=== PATIENT | female | born 1980 | race Caucasian/White ===

== ENCOUNTER 2017-10-24 17:18 | Emergency (ER) | payer OTHER, SELFPAY ==
[2017-10-24 18:08] LABS: Bilirubin Negative (Negative); Blood, Urine Trace (Negative); Clarity Clear (Clear); Glucose, Urine (Dipstick) Negative (Negative); Leukocyte Negative (Negative); Nitrite Negative (Negative); Protein, Urine (Dipstick) Negative (Neg-Trace); Urobilinogen 0.2 mg/dL (0.2-1.0)
[2017-10-24 18:09] LABS: Specific Gravity, Urine 1.023 (1.002-1.036)
[2017-10-24 18:09] LABS: #Basophils 0.1 thou/uL (0.0-0.2); #Eosinphils 0.1 thou/uL (0.0-0.7); #Lymphocytes 2.7 thou/uL (1.20-3.40); #Monocytes 0.5 thou/uL (0.11-0.59); #Neutrophils 6.1 thou/uL (1.40-6.50); %Basophils 1.1 % (0.0-1.0); %Eosinophils 1.6 % (0.0-10.0); %Lymphocytes 28.4 % (21.0-51.0); %Monocytes 5.1 % (0.0-10.0); Hemoglobin 13.3 g/dL (12.0-16.0); Mean Corpuscular HGB CONC 33.8 g/dL (32.0-36.0); Mean Corpuscular Hemoglobin 30.4 pg (27.0-31.0); Mean Corpuscular Volume 89.8 fl (81.0-99.0); Mean Platelet Volume 7.9 fL (7.4-10.4); Platelet Count 220 thou/uL (130-400); RBC Distribution Width 11.6 % (11.5-14.5); Red Blood Cell (RBC) Count 4.38 mill/uL (4.20-5.40); White Blood Cell (WBC) Count 9.6 thou/uL (4.8-10.8)
[2017-10-24 18:16] LABS: Bacteria/HPF 1+ HPF (None Seen); Squamous Epithelial 0-3 HPF (0-3)
--- NOTE | 2017-10-24 21:52 | ULT ---
PELVIC ULTRASOUND 10/24/17 COMPARISON: None. HISTORY: Cramping and vaginal bleeding. Positive test. TECHNIQUE: Multiplanar serrano scale and color doppler images were obtained in a transvaginal pelvic ultrasound. Sp ectral analysis of the doppler waveforms of the ovaries were performed. FINDINGS: The endometrium is thickened. There is a tiny hypoechoic region in the middle of the endometrial thic kening. This has a mean sac diameter of 0.25 cm which would estimated gestational age at 5 weeks, 0 d ays. No pole or yolk sac is seen at this time. A small amount of free fluid is seen in the pelvis. Both ovaries are normal in size and appearance an d demonstrate normal internal flow. IMPRESSION: Possible very early intrauterine . POS: MIKHAIL
== END 2017-10-24 21:25 | disposition home or self-care (01) ==
LOC: SCSER 17:18
DX: O20.0 Threatened abortion (principal); O99.411 Diseases of the circulatory system complicating pregnancy, first trimester; I48.91 Unspecified atrial fibrillation; Z3A.01 Less than 8 weeks gestation of pregnancy
CPT/HCPCS: 36415; 76856; 81003; 81015; 84702; 85025; 86900; 86901; 87086; 87480; 87491; 87510; 87591; 87660; 90384; 93976; 96372

== ENCOUNTER 2019-04-08 09:36 | Outpatient (CLI) | payer OTHER ==
--- NOTE | 2019-04-08 09:55 | RAD ---
Lumbar spine 3 views: 04/08/2019 COMPARISON: None HISTORY: Low back pain FINDINGS: No fracture or dislocation. 5 lumbar type vertebral bodies are present with intact pedicles on frontal imaging. Lateral exam demonstrates normal vertebral body height and alignment. IMPRESSION: No acute findings.
== END 2019-04-08 09:37 | disposition home or self-care (01) ==
LOC: RAD-FRANK 09:36
PROVIDERS: ATTEND Nurse Practitioner Family
DX: S39.012A Strain of muscle, fascia and tendon of lower back, initial encounter (principal)
CPT/HCPCS: 72100

== ENCOUNTER 2019-07-30 15:01 | Emergency (ER) | payer OTHER, SELFPAY ==
[2019-07-30 15:59] LABS: #Basophils 0.1 thou/uL (0.0-0.2); #Lymphocytes 2.8 thou/uL (1.20-3.40); #Monocytes 0.4 thou/uL (0.11-0.59); #Neutrophils 4.1 thou/uL (1.40-6.50); %Basophils 1.4 % (0.0-1.0); %Eosinophils 0.6 % (0.0-10.0); %Lymphocytes 37.2 % (21.0-51.0); %Monocytes 5.9 % (0.0-10.0); %Neutrophils 54.9 % (42.0-75.0); Hemoglobin 14.2 g/dL (12.0-16.0); Mean Corpuscular HGB CONC 32.2 g/dL (32.0-36.0); Mean Corpuscular Hemoglobin 29.7 pg (27.0-31.0); Mean Corpuscular Volume 92.2 fL (78.0-98.0); Mean Platelet Volume 9.5 fL (7.4-10.4); Platelet Count 234 thou/uL (130-400); RBC Distribution Width 12.9 % (11.5-14.5); Red Blood Cell (RBC) Count 4.78 mill/uL (4.20-5.40); White Blood Cell (WBC) Count 7.4 thou/uL (4.8-10.8)
[2019-07-30 16:06] LABS: ALT (SGPT) 19 U/L (8-55); AST (SGOT) 18 U/L (5-34); Albumin 4.4 g/dL (3.5-5.0); Alkaline Phosphatase 52 U/L (40-110); Anion Gap 13 mmol/L (10-20); BUN (Urea Nitrogen) 9 mg/dL (7.0-18.7); Bilirubin, Total 0.6 mg/dL (0.2-1.2); Calc. Creatinine Clearance 0 mL/min (70-130); Calcium 9.1 mg/dL (7.8-10.44); Carbon Dioxide 23 mmol/L (22-29); Chloride 106 mmol/L (98-107); Estimated GFR-MDRD 87; Globulin 3.2 g/dL (2.4-3.5); Glucose 91 mg/dL (70-105); Potassium 3.4 mmol/L (3.5-5.1); Protein, Total 7.6 g/dL (6.0-8.3); Sodium 139 mmol/L (136-145)
[2019-07-30 16:14] LABS: BHCG - Serum Negative (NEGATIVE); Pregs Control Background? CLEAR/WHITE (CLR/WHITE); Pregs Control Bar Appear? YES (CONTROL BAR)
--- NOTE | 2019-07-30 16:33 | CT ---
CT BRAIN NONCONTRAST: DATE: 07/30/2019 HISTORY: 38-year-old female with altered mental status, visual disturbance, and headache. FINDINGS: There is no evidence of acute intra-axial or extra-axial hemorrhage. There is no midline shift or any other mass effect. There is no extra-axial fluid collection. The ventricles are normal in size and configuration. The tympanomastoid cavities, and the upper portions of the paranasal sinuses included in these images, are grossly clear. Calvarium is intact. IMPRESSION: Normal.
--- NOTE | 2019-07-30 16:36 | RAD ---
XR Chest 1 View Portable HISTORY: Chest pain COMPARISON: 07/28/2017 study FINDINGS: Heart size and mediastinum are within normal limits. The lungs are clear of infiltrates. No significant bony findings. IMPRESSION: No active intrathoracic disease.
[2019-07-30 17:08] LABS: Bilirubin Negative (Negative); Blood, Urine Negative (Negative); Clarity Clear (Clear); Glucose, Urine (Dipstick) Negative (Negative); Leukocyte Negative (Negative); Nitrite Negative (Negative); Protein, Urine (Dipstick) Negative (Neg-Trace); Urobilinogen 0.2 mg/dL (Less than 2)
== END 2019-07-30 17:30 | disposition home or self-care (01) ==
LOC: SCSER 15:01
DX: R07.9 Chest pain, unspecified (principal); R20.2 Paresthesia of skin; F41.9 Anxiety disorder, unspecified; F32.9 Major depressive disorder, single episode, unspecified; G43.909 Migraine, unspecified, not intractable, without status migrainosus
CPT/HCPCS: 70450; 71045; 80053; 81003; 84443; 84484; 84703; 85025; 85379; 93005

== ENCOUNTER 2019-08-18 19:41 | Emergency (ER) | payer SELFPAY ==
[2019-08-18] MEDS ORDERED: Ondansetron PF 4 MG/2 ML Vial ONE (19:56)
[2019-08-18] MEDS ORDERED: Morphine 4 MG/ML VIAL ONE (19:56)
[2019-08-18 20:52] LABS: BHCG - Serum Negative (NEGATIVE); Pregs Control Background? CLEAR/WHITE (CLR/WHITE); Pregs Control Bar Appear? YES (CONTROL BAR)
[2019-08-18 21:01] LABS: Hemoglobin 13.6 g/dL (12.0-16.0); Mean Corpuscular HGB CONC 34.4 g/dL (32.0-36.0); Mean Corpuscular Hemoglobin 31.6 pg (27.0-31.0); Platelet Count 180 thou/uL (130-400); RBC Distribution Width 12.7 % (11.5-14.5); White Blood Cell (WBC) Count 12.7 thou/uL (4.8-10.8)
[2019-08-18 21:04] LABS: ALT (SGPT) 12 U/L (8-55); AST (SGOT) 11 U/L (5-34); Albumin 3.7 g/dL (3.5-5.0); Alkaline Phosphatase 47 U/L (40-110); Anion Gap 10 mmol/L (10-20); BUN (Urea Nitrogen) 8 mg/dL (7.0-18.7); Bilirubin, Total 0.9 mg/dL (0.2-1.2); Calc. Creatinine Clearance 0 mL/min (70-130); Calcium 7.8 mg/dL (7.8-10.44); Carbon Dioxide 20 mmol/L (22-29); Chloride 112 mmol/L (98-107); Estimated GFR-MDRD 90; Globulin 2.6 g/dL (2.4-3.5); Glucose 95 mg/dL (70-105); Lipase 19 U/L (8-78); Potassium 4.3 mmol/L (3.5-5.1); Protein, Total 6.3 g/dL (6.0-8.3); Sodium 138 mmol/L (136-145)
[2019-08-18 21:05] LABS: Band 18 % (5-11); Eosinophils 2 % (0-10); Lymphocytes 3 % (21-51); MDiff Complete? YES; Monocytes 4 % (0-10); Neutrophil 73 % (42-75)
--- NOTE | 2019-08-18 21:48 | CT ---
CT ABDOMEN AND PELVIS WITH IV CONTRAST: 08/18/19 HISTORY: Diffuse abdominal pain, right lower quadrant pain. FINDINGS: The lung bases are clear. There is fatty infiltration of the liver. No hepatic mass is seen. The liver, spleen, pancreas, adrenal glands and kidneys are normal. No calcified gallstones are noted . No free air, free fluid, or lymphadenopathy is seen in the abdomen or pelvis. The small bowel loops are not abnormally dilated. A normal appearing appendix is present. The uterus and ovaries are present. There is a 3.5 cm cystic mass in the right ovary. No acute osseous abnormali ties are noted. IMPRESSION: 1. 3.5 cm right ovarian cystic mass. 2. No evidence of appendicitis. POS: OFF
--- NOTE | 2019-08-18 22:51 | ULT ---
TRANSVAGINAL PELVIC ULTRASOUND WITH GALICIA SCALE, COLOR FLOW AND SPECTRAL DOPPLER IMAGIN08/18/19 HISTORY: Pelvic pain. More to the right lower quadrant with nausea, vomiting, and diarrhea. FINDINGS: The uterus measures 8.5 x 3.9 x 5.6 cm without focal mass or endometrial fluid. The endometrium measu res 9 mm in thickness. The right ovary measures 4.1 x 5.1 x 4.4 cm and the left ovary measures 3.2 x 2.3 x 3.1 cm. Flow is d emonstrated to both ovaries. No free fluid is seen in the cul-de-sac. There is a 3.2 x 3 x 2.4 cm cys t in the right ovary. IMPRESSION: 3.2 cm right ovarian cyst. POS: OFF
[2019-08-18] MEDS ORDERED: Ketorolac Tromethamine 30 MG/ML VIAL ONE (23:35)
[2019-08-18 23:52] LABS: Bilirubin Negative (Negative); Blood, Urine Negative (Negative); Clarity Clear (Clear); Glucose, Urine (Dipstick) Normal (Negative); Leukocyte Negative Leu/uL (Negative); Nitrite Negative (Negative); Protein, Urine (Dipstick) Negative (Neg-Trace); Urobilinogen Normal mg/dL (Less than 2)
== END 2019-08-19 00:11 | disposition home or self-care (01) ==
LOC: ERS 19:41
DX: N83.201 Unspecified ovarian cyst, right side (principal); F41.9 Anxiety disorder, unspecified; F32.9 Major depressive disorder, single episode, unspecified; Z85.3 Personal history of malignant neoplasm of breast; Z87.440 Personal history of urinary (tract) infections
CPT/HCPCS: 36415; 74177; 76856; 80053; 81003; 83605; 83690; 84703; 85025; 93976; 96361; 96374; 96375; J1885; J2270; J2405

== ENCOUNTER 2021-03-03 02:18 | Emergency (ER) | payer SELFPAY | END 2021-03-03 03:37 | disposition home or self-care (01) | LOC: ERS 02:18 | DX: M65.331 Trigger finger, right middle finger (principal); G43.909 Migraine, unspecified, not intractable, without status migrainosus | CPT/HCPCS: 99283 ==

== ENCOUNTER 2022-04-16 11:03 | Emergency (ER) | payer BC, SELFPAY ==
[2022-04-16] MEDS ORDERED: Metoclopramide HCl 10 MG/2 ML VIAL ONE (13:53)
[2022-04-16] MEDS ORDERED: diphenhydrAMINE 50 MG/ML VIAL ONE (13:53)
[2022-04-16] MEDS ORDERED: Ketorolac Tromethamine 30 MG/ML VIAL ONE (13:53)
[2022-04-16 14:14] LABS: Bacteria/HPF None Seen HPF (None Seen); Bilirubin Negative (Negative); Blood, Urine Trace (Negative); Clarity Clear (Clear); Glucose, Urine (Dipstick) Normal (Negative); Ketone, Urine 20 mg/dL (Negative); Leukocyte Negative Leu/uL (Negative); Nitrite Negative (Negative); Protein, Urine (Dipstick) 20 mg/dL (Neg-Trace); Specific Gravity, Urine 1.031 (1.002-1.036); Squamous Epithelial 0-3 HPF (0-3); Urobilinogen Normal mg/dL (Less than 2); WBC/HPF 0-3 HPF (0-3)
[2022-04-16 14:16] LABS: Pregnancy Test - Urine (BHCG) Negative (Negative); Pregu Control Background? CLEAR/WHITE (CLR/WHITE); Pregu Control Bar Appear? YES (CONTROL BAR); Specific Gravity 1.031 (1.002-1.036)
== END 2022-04-16 17:06 | disposition home or self-care (01) ==
LOC: ERS 11:03
DX: G43.909 Migraine, unspecified, not intractable, without status migrainosus (principal)
CPT/HCPCS: 70450; 72125; 81003; 81015; 81025; 96365; 96375; J1200; J1885; J2765

== ENCOUNTER 2022-10-03 07:44 | Outpatient (CLI) | payer BC | END 2022-10-03 07:45 | disposition home or self-care (01) | LOC: RAD-FRANK 07:44 | PROVIDERS: ATTEND Nurse Practitioner Family | DX: S39.012A Strain of muscle, fascia and tendon of lower back, initial encounter (principal); M47.897 Other spondylosis, lumbosacral region | CPT/HCPCS: 72100 ==